=== PATIENT | male | born 1975 | race Caucasian/White ===

== ENCOUNTER 2017-09-24 00:12 | Emergency (ER) | payer SELFPAY ==
--- NOTE | 2017-09-24 00:43 | ER ---
Nurse's Notes [facility] Name: Geovani Hawkins Age: 41 yrs Sex: Male : 1975 Arrival Date: 09/24/2017 Time: 00:15 Bed 14 Private MD: Diagnosis: Pain in right shoulder;Other dislocation of right shoulder joint Presentation: 09/24 00:31 Presenting complaint: Patient states: pt states approx 4 hours ago he was trying to get bb up and put weight on his right arm and his right shoulder popped out then back in now has swelling and pain to right shoulder. Transition of care: patient was not received from another setting of care. Onset of symptoms was September 24, 2017. Care prior to arrival: None. 00:31 Method Of Arrival: Ambulatory bb 00: Acuity: CHRISTIAN 4 bb Historical: - Allergies: 00:33 Morphine; bb 00:33 Imitrex; bb - Home Meds: 00:33 gabapentin oral oral [Active]; bb - PMHx: 00:33 cluster headaches; epilepsy; bb - PSHx: 00:33 oral surgery; bb - Immunization history:: Adult Immunizations up to date, Flu vaccine is not up to date. - Social history:: Smoking status: Patient uses tobacco products, smokes one-half pack cigarettes per day, Patient/guardian denies using alcohol, street drugs. - Family history:: not pertinent. Screenin:35 Abuse screen: Denies threats or abuse. Denies injuries from another. Nutritional aa1 screening: No deficits noted. Tuberculosis screening: No symptoms or risk factors identified. Fall Risk None identified. Assessment: 00:35 General: Appears in no apparent distress. comfortable, Behavior is calm, cooperative, aa1 appropriate for age. Pain: Complains of pain in posterior aspect of right shoulder and anterior aspect of right shoulder. Neuro: Level of Consciousness is awake, alert, obeys commands, Oriented to person, place, time, situation. Respiratory: Airway is patent Respiratory effort is even, unlabored, Respiratory pattern is regular, symmetrical. GI: No signs and/or symptoms were reported involving the gastrointestinal system. : No signs and/or symptoms were reported regarding the genitourinary system. EENT: No signs and/or symptoms were reported regarding the EENT system. Derm: Skin is intact, is healthy with good turgor, Skin is pink, warm \T\ dry. Musculoskeletal: Circulation, motion, and sensation intact. Capillary refill < 3 seconds, Range of motion: limited in right shoulder. 00:52 Reassessment: Patient appears in no apparent distress at this time. Patient is alert, aa1 oriented x 3, equal unlabored respirations, skin warm/dry/pink. Discussed d/c \T\ f/u instructions with pt \T\ spouse; denies questions or concerns. Vital Signs: 00:33 BP 128 / 81; Pulse 80; Resp 18 S; Temp 98.2(O); Pulse Ox 99% on R/A; Weight 63.5 kg bb (R); Height 6 ft. 1 in. (185.42 cm) (R); Pain 8/10; 00:33 Body Mass Index 18.47 (63.50 kg, 185.42 cm) bb ED Course: 00:15 Patient arrived in ED. am2 00:25 Art Cornejo MD is Attending Physician. bernie 00:32 Triage completed. bb 00:33 Arm band placed on Patient placed in an exam room, on a stretcher, on pulse oximetry. bb Family accompanied patient. 00:35 Patient has correct armband on for positive identification. Bed in low position. Call aa1 light in reach. Pulse ox on. NIBP on. 00:39 Mega Hensley MD is Referral Physician. [facility] 00:43 Chelsea Joel, RN is Primary Nurse. aa1 00:43 X-ray completed. Portable x-ray completed in exam room. Patient tolerated procedure kw well. 00:52 No provider procedures requiring assistance completed. Patient did not have IV access aa1 during this emergency room visit. Sling applied to right arm. Administered Medications: 00:51 Drug: Motrin 600 mg Route: PO; aa1 00:52 Follow up: Response: Medication administered at discharge. aa1 Outcome: 00:42 Discharge ordered by . bernie 00:52 Discharged to home ambulatory, with significant other. aa1 00:52 Condition: good 00:52 Discharge instructions given to patient, significant other, Instructed on discharge instructions, follow up and referral plans. medication usage, Demonstrated understanding of instructions, follow-up care, medications, Prescriptions given X 1. 00:53 Patient left the ED. aa1 Signatures: Chelsea Joel RN RN aa1 Art Cornejo MD MD cha Ballard, Brenda, ALANNA RN Wendy Delvalle Amanda am2
--- NOTE | 2017-09-24 00:43 | EDPHYS ---
Physician Documentation [facility] Name: Geovani Hawkins Age: 41 yrs Sex: Male : 1975 Arrival Date: 09/24/2017 Time: 00:15 Bed 14 Private MD: ED Physician Art Cornejo HPI: 09/24 00:36 This 41 yrs old Male presents to ER via Ambulatory with complaints of bernie Shoulder Pain. 00:36 The patient or guardian complains of decreased range of motion, pain. right shoulder. bernie Context: The problem [place] park. Onset: The symptoms/episode began/occurred just prior to arrival. Modifying factors: the symptoms are alleviated by nothing. The symptoms are aggravated by movement. Associated signs and symptoms: The patient has no apparent associated signs or symptoms. Severity of symptoms: At their worst the symptoms were mild, moderate, in the emergency department the symptoms have improved, mildly. Treatment prior to arrival includes: no previous treatment. The patient has not experienced similar symptoms in the past. Historical: - Allergies: 00:33 Morphine; bb 00:33 Imitrex; bb - Home Meds: 00:33 gabapentin oral oral [Active]; bb - PMHx: 00:33 cluster headaches; epilepsy; bb - PSHx: 00:33 oral surgery; bb - Immunization history:: Adult Immunizations up to date, Flu vaccine is not up to date. - Social history:: Smoking status: Patient uses tobacco products, smokes one-half pack cigarettes per day, Patient/guardian denies using alcohol, street drugs. - Family history:: not pertinent. ROS: 00:36 Constitutional: Negative for fever, chills, and weight loss, Eyes: Negative for injury, bernie pain, redness, and discharge, ENT: Negative for injury, pain, and discharge, Neck: Negative for injury, pain, and swelling, Cardiovascular: Negative for chest pain, palpitations, and edema, Respiratory: Negative for shortness of breath, cough, wheezing, and pleuritic chest pain, Abdomen/GI: Negative for abdominal pain, nausea, vomiting, diarrhea, and constipation, Back: Negative for injury and pain, : Negative for injury, bleeding, discharge, and swelling, Skin: Negative for injury, rash, and discoloration, Neuro: Negative for headache, weakness, numbness, tingling, and seizure, Psych: Negative for depression, anxiety, suicide ideation, homicidal ideation, and hallucinations, Allergy/Immunology: Negative for hives, rash, and allergies, Endocrine: Negative for neck swelling, polydipsia, polyuria, polyphagia, and marked weight changes, Hematologic/Lymphatic: Negative for swollen nodes, abnormal bleeding, and unusual bruising. 00:36 MS/extremity: Positive for injury or acute deformity, decreased range of motion, of the anterior aspect of right shoulder and posterior aspect of right shoulder. Exam: 00:36 Constitutional: This is a well developed, well nourished patient who is awake, alert, bernie and in no acute distress. Head/Face: Normocephalic, atraumatic. Eyes: Pupils equal round and reactive to light, extra-ocular motions intact. Lids and lashes normal. Conjunctiva and sclera are non-icteric and not injected. Cornea within normal limits. Periorbital areas with no swelling, redness, or edema. ENT: Nares patent. No nasal discharge, no septal abnormalities noted. Tympanic membranes are normal and external auditory canals are clear. Oropharynx with no redness, swelling, or masses, exudates, or evidence of obstruction, uvula midline. Mucous membranes moist. Neck: Trachea midline, no thyromegaly or masses palpated, and no cervical lymphadenopathy. Supple, full range of motion without nuchal rigidity, or vertebral point tenderness. No Meningismus. Chest/axilla: Normal chest wall appearance and motion. Nontender with no deformity. No lesions are appreciated. Cardiovascular: Regular rate and rhythm with a normal S1 and S2. No gallops, murmurs, or rubs. Normal PMI, no JVD. No pulse deficits. Respiratory: Lungs have equal breath sounds bilaterally, clear to auscultation and percussion. No rales, rhonchi or wheezes noted. No increased work of breathing, no retractions or nasal flaring. Abdomen/GI: Soft, non-tender, with normal bowel sounds. No distension or tympany. No guarding or rebound. No evidence of tenderness throughout. Back: No spinal tenderness. No costovertebral tenderness. Full range of motion. Male : Normal genitalia with no discharge or lesions. Skin: Warm, dry with normal turgor. Normal color with no rashes, no lesions, and no evidence of cellulitis. Neuro: Awake and alert, GCS 15, oriented to person, place, time, and situation. Cranial nerves II-XII grossly intact. Motor strength 5/5 in all extremities. Sensory grossly intact. Cerebellar exam normal. Normal gait. Psych: Awake, alert, with orientation to person, place and time. Behavior, mood, and affect are within normal limits. 00:36 Musculoskeletal/extremity: Extremities: grossly normal except: noted in the anterior aspect of right shoulder and posterior aspect of right shoulder: decreased ROM, pain. Vital Signs: 00:33 BP 128 / 81; Pulse 80; Resp 18 S; Temp 98.2(O); Pulse Ox 99% on R/A; Weight 63.5 kg bb (R); Height 6 ft. 1 in. (185.42 cm) (R); Pain 8/10; 00:33 Body Mass Index 18.47 (63.50 kg, 185.42 cm) bb MDM: 00:25 Patient medically screened. [facility] 09/24 00:33 Order name: Shoulder Right (2 View) XRAY rg2 09/24 00:36 Order name: Sling; Complete Time: 00:52 [facility] 09/24 00:36 Order name: Ice pack; Complete Time: 00:51 [facility] Administered Medications: 00:51 Drug: Motrin 600 mg Route: PO; aa1 00:52 Follow up: Response: Medication administered at discharge. aa1 Disposition: 09/24/17 00:42 Discharged to Home. Impression: Pain in right shoulder, Other dislocation of right shoulder joint. - Condition is Stable. - Discharge Instructions: Shoulder Dislocation, Musculoskeletal Pain, Shoulder Pain, Shoulder Dislocation, [id number]. - Prescriptions for Ibuprofen 600 mg Oral Tablet - take 1 tablet by ORAL route every 8 hours As needed take with food; 21 tablet. - Medication Reconciliation Form, Thank You Letter, Antibiotic Education, Prescription Opioid Use form. - Follow up: Mega Hensley MD; When: 2 - 3 days; Reason: Recheck today's complaints, Continuance of care, Re-evaluation by your physician. - Problem is new. - Symptoms have improved. Signatures: Dispatcher [employer] EDChelsea Woodruff RN RN aa1 Art Cornejo MD MD cha Ballard, Brenda, RN RN bb
[2017-09-24 00:57] VITALS: BP 128/81; TEMP 98.2; O2SAT 99
[2017-09-24] MEDS ORDERED: IBUPROFEN 400 MG TAB ONE (01:06)
[2017-09-24] MEDS ORDERED: IBUPROFEN 200 MG TAB PO ONE (01:06)
--- NOTE | 2017-09-24 08:57 | RAD REPORT ---
EXAM DESCRIPTION: RAD - Shoulder Right 2 View - 09/24/2017 12:46 am CLINICAL HISTORY: Shoulder pain and swelling. COMPARISON: None. FINDINGS: No acute fracture or dislocation is currently seen. Prominent olecranon spur is identified .
== END 2017-09-24 00:53 | disposition home or self-care (01) ==
LOC: ER 00:12
DX: F17.210 Nicotine dependence, cigarettes, uncomplicated; Y92.830 Public park as the place of occurrence of the external cause; G40.909 Epilepsy, unspecified, not intractable, without status epilepticus; Y99.8 Other external cause status; Y93.89 Activity, other specified; X58.XXXA Exposure to other specified factors, initial encounter; Z88.6 Allergy status to analgesic agent; S43.004A Unspecified dislocation of right shoulder joint, initial encounter
CPT/HCPCS: 99284

== ENCOUNTER 2019-02-06 21:04 | Emergency (ER) | payer SELFPAY ==
[2019-02-06 21:46] LABS: Absolute Lymphocytes (CBC) 2.3 K/uL (0.7-4.9); Hematocrit 37.7 % (39.6-49.0); Lymphocytes % 27.6 % (15.3-44.8); MPV 8.1 fL (7.6-11.3); RBC Red Blood Cell Count 4.13 M/uL (4.33-5.43)
[2019-02-06 22:00] LABS: BUN Blood Urea Nitrogen 15 mg/dL (7-18); Bicarbonate 29 mmol/L (21-32); Glucose Level 95 mg/dL (74-106); Potassium 3.7 mmol/L (3.5-5.1); Sodium Level 142 mmol/L (136-145)
[2019-02-06] MEDS ORDERED: NA CHLORIDE 0.9% 250 ML ONE (22:51)
[2019-02-06] MEDS ORDERED: CEFTRIAXONE 1000 MG/VIAL ONE (22:51)
[2019-02-06] MEDS ORDERED: CLINDAMYCIN 600MG/D5W 600 MG/50 ML BAG IV ONE (23:09)
--- NOTE | 2019-02-06 23:23 | ER ---
Nurse's Notes [facility] Name: Geovani Hawkins Age: 43 yrs Sex: Male : 1975 Arrival Date: 02/06/2019 Time: 21:06 Bed 27 Private MD: Diagnosis: Cellulitis of left lower limb Presentation: 02/06 21:22 Presenting complaint: Patient states: "3 weeks ago I tripped and my ankle went side ca1 ways. It hurt a little bit but was not swollen. 4-5 days ago, my left ankle started to swell and it hurts when I walk on it". Transition of care: patient was not received from another setting of care. Onset of symptoms was February 06, 2019. Risk Assessment: Do you want to hurt yourself or someone else? Patient reports no desire to harm self or others. Initial Sepsis Screen: Does the patient meet any 2 criteria? No. Patient's initial sepsis screen is negative. Does the patient have a suspected source of infection? No. Patient's initial sepsis screen is negative. Care prior to arrival: None. 21:22 Method Of Arrival: Wheelchair ca1 21:22 Acuity: CHRISTIAN 3 ca1 Historical: - Allergies: 21:27 Imitrex; ca1 21:27 Morphine; ca1 - Home Meds: 21:27 gabapentin Oral [Active]; Suboxone sublingual sublingual [Active]; Maxalt oral oral ca1 [Active]; - PMHx: 21:27 cluster headaches; epilepsy; ca1 - PSHx: 21:27 oral surgery; L thigh surgery; ca1 - Immunization history:: Adult Immunizations up to date. - Social history:: Smoking status: Patient uses tobacco products, smokes one-half pack cigarettes per day. - Ebola Screening: : Patient negative for fever greater than or equal to 101.5 degrees Fahrenheit, and additional compatible Ebola Virus Disease symptoms Patient denies exposure to infectious person Patient denies travel to an Ebola-affected area in the 21 days before illness onset No symptoms or risks identified at this time. Screenin:29 Abuse screen: Denies threats or abuse. Denies injuries from another. Nutritional ca1 screening: No deficits noted. Tuberculosis screening: No symptoms or risk factors identified. Fall Risk None identified. Assessment: 21:29 General: Appears in no apparent distress. comfortable, Behavior is calm, cooperative, ca1 appropriate for age. Pain: Complains of pain in left foot and left leg Pain currently is 5 out of 10 on a pain scale. at worst was 7 out of 10 on a pain scale. Quality of pain is described as pressure, Pain began 2-3 days ago. Aggravated by weight bearing. Neuro: Level of Consciousness is awake, alert, obeys commands, Oriented to person, place, time, situation. Cardiovascular: Heart tones S1 S2 present Capillary refill < 3 seconds Patient's skin is warm and dry. Pulses are all present. Respiratory: Airway is patent Respiratory effort is even, unlabored, Respiratory pattern is regular, symmetrical, Breath sounds are clear bilaterally. GI: Abdomen is flat, non-distended, Bowel sounds present X 4 quads. Abd is soft and non tender X 4 quads. : No deficits noted. No signs and/or symptoms were reported regarding the genitourinary system. EENT: No deficits noted. No signs and/or symptoms were reported regarding the EENT system. Derm: Skin is intact, is healthy with good turgor, Skin is pink, warm \\T\\ dry. Musculoskeletal: Circulation, motion, and sensation intact. Capillary refill < 3 seconds, Range of motion: intact in all extremities, Swelling present in left foot, lateral aspect of left calf, left lateral ankle, lateral aspect of left foot, left calf, left Achilles, left heel, medial aspect of left calf, left medial ankle, medial aspect of left foot, left mcallister, anterior aspect of left ankle and dorsum of left foot. Vital Signs: 21:27 BP 116 / 85; Pulse 116; Resp 18 S; Temp 98; Pulse Ox 99% on R/A; Weight 65.77 kg (R); ca1 Height 6 ft. 1 in. (185.42 cm); Pain 7/10; 23:47 BP 115 / 80; Pulse 96; Resp 16; Temp 98; Pulse Ox 99% ; rv 21:27 Body Mass Index 19.13 (65.77 kg, 185.42 cm) ca1 ED Course: 21:06 Patient arrived in ED. es 21:08 Andrey Hurt PA is PHCP. jr8 21:08 Art Cornejo MD is Attending Physician. jr8 21:22 Mar Metz RN is Primary Nurse. ca1 21:24 Triage completed. ca1 21:27 Arm band placed on. ca1 21:29 Patient has correct armband on for positive identification. Bed in low position. Call ca1 light in reach. Side rails up X 1. Pulse ox on. NIBP on. Warm blanket given. Ice pack to injury. 21:31 Inserted saline lock: 20 gauge in right antecubital area, using aseptic technique. ca1 Blood collected. 21:57 XRAY Ankle LEFT 3 view In Process Unspecified. EDMS 22:34 Ultrasound completed. Patient tolerated well. sg3 22:35 US Extremity Venous Unilateral Ltd In Process Unspecified. EDMS 23:46 No provider procedures requiring assistance completed. IV discontinued, intact, rv bleeding controlled, No redness/swelling at site. Pressure dressing applied. Administered Medications: 22:57 Drug: Rocephin 2 grams Route: IV; Rate: calculated rate; Site: right antecubital; rv 23:22 Follow up: IV Status: Completed infusion rv 23:22 Drug: Clindamycin 600 mg Route: IVPB; Infused Over: 30 mins; Site: right antecubital; rv 23:46 Follow up: IV Status: Completed infusion rv Outcome: 23:22 Discharge ordered by MD. wynne 23:47 Discharged to home ambulatory. rv 23:47 Condition: good 23:47 Discharge instructions given to patient, Instructed on discharge instructions, follow up and referral plans. medication usage, Demonstrated understanding of instructions, follow-up care, medications, Prescriptions given X 2. 23:47 Patient left the ED. rv Signatures: Dispatcher [employer] EDDuyen Gonzalez Josh, PA PA jrMarine Rawls sg3 Rao Isaac, RN RN rv Mar Metz RN RN ca1
--- NOTE | 2019-02-06 23:24 | EDPHYS ---
Physician Documentation [facility] Name: Geovani Hawkins Age: 43 yrs Sex: Male : 1975 Arrival Date: 02/06/2019 Time: 21:06 Bed 27 Private MD: ED Physician Art Cornejo HPI: 02/06 22:10 This 43 yrs old Male presents to ER via Wheelchair with complaints of Ankle jr8 Injury. 22:10 The patient presents with pain, swelling, tenderness. The complaints affect the left jr8 ankle. Onset: The symptoms/episode began/occurred acutely, 3 day(s) ago. Associated signs and symptoms: The patient has no apparent associated signs or symptoms. Modifying factors: The symptoms are alleviated by nothing, the symptoms are aggravated by weight bearing, movement. Severity of symptoms: At their worst the symptoms were moderate, in the emergency department the symptoms are unchanged. The patient has not experienced similar symptoms in the past. The patient has not recently seen a physician. Patient stated that he rolled his ankle about 3 weeks ago. Had been fine and recovered well from incident. 3 days ago same ankle started to swell and become painful. Denies re injury . Historical: - Allergies: 21:27 Imitrex; ca1 21:27 Morphine; ca1 - Home Meds: 21:27 gabapentin Oral [Active]; Suboxone sublingual sublingual [Active]; Maxalt oral oral ca1 [Active]; - PMHx: 21:27 cluster headaches; epilepsy; ca1 - PSHx: 21:27 oral surgery; L thigh surgery; ca1 - Immunization history:: Adult Immunizations up to date. - Social history:: Smoking status: Patient uses tobacco products, smokes one-half pack cigarettes per day. - Ebola Screening: : Patient negative for fever greater than or equal to 101.5 degrees Fahrenheit, and additional compatible Ebola Virus Disease symptoms Patient denies exposure to infectious person Patient denies travel to an Ebola-affected area in the 21 days before illness onset No symptoms or risks identified at this time. ROS: 22:10 Eyes: Negative for injury, pain, redness, and discharge, ENT: Negative for injury, jr8 pain, and discharge, Neck: Negative for injury, pain, and swelling, Cardiovascular: Negative for chest pain, palpitations, and edema, Respiratory: Negative for shortness of breath, cough, wheezing, and pleuritic chest pain, Abdomen/GI: Negative for abdominal pain, nausea, vomiting, diarrhea, and constipation, Back: Negative for injury and pain, Skin: Negative for injury, rash, and discoloration, Neuro: Negative for headache, weakness, numbness, tingling, and seizure. 22:10 MS/extremity: Positive for erythema, pain, swelling, tenderness, warmth, of the left ankle and disal leg. Exam: 22:39 Eyes: Pupils equal round and reactive to light, extra-ocular motions intact. Lids and jr8 lashes normal. Conjunctiva and sclera are non-icteric and not injected. Cornea within normal limits. Periorbital areas with no swelling, redness, or edema. ENT: Nares patent. No nasal discharge, no septal abnormalities noted. Tympanic membranes are normal and external auditory canals are clear. Oropharynx with no redness, swelling, or masses, exudates, or evidence of obstruction, uvula midline. Mucous membranes moist. Neck: Trachea midline, no thyromegaly or masses palpated, and no cervical lymphadenopathy. Supple, full range of motion without nuchal rigidity, or vertebral point tenderness. No Meningismus. Cardiovascular: Regular rate and rhythm with a normal S1 and S2. No gallops, murmurs, or rubs. Normal PMI, no JVD. No pulse deficits. Respiratory: Lungs have equal breath sounds bilaterally, clear to auscultation and percussion. No rales, rhonchi or wheezes noted. No increased work of breathing, no retractions or nasal flaring. Abdomen/GI: Soft, non-tender, with normal bowel sounds. No distension or tympany. No guarding or rebound. No evidence of tenderness throughout. Back: No spinal tenderness. No costovertebral tenderness. Full range of motion. MS/ Extremity: Pulses equal, no cyanosis. Neurovascular intact. Full, normal range of motion. Neuro: Awake and alert, GCS 15, oriented to person, place, time, and situation. Cranial nerves II-XII grossly intact. Motor strength 5/5 in all extremities. Sensory grossly intact. Cerebellar exam normal. Normal gait. 22:39 Skin: swollen erythematic left ankle, foot, and distal leg noted. Mild pain to touch. No streaking noted . Vital Signs: 21:27 BP 116 / 85; Pulse 116; Resp 18 S; Temp 98; Pulse Ox 99% on R/A; Weight 65.77 kg (R); ca1 Height 6 ft. 1 in. (185.42 cm); Pain 7/10; 23:47 BP 115 / 80; Pulse 96; Resp 16; Temp 98; Pulse Ox 99% ; rv 21:27 Body Mass Index 19.13 (65.77 kg, 185.42 cm) ca1 MDM: 21:08 Patient medically screened. [facility] 22:39 Data reviewed: vital signs, nurses notes, lab test result(s), radiologic studies, plain jr films, ultrasound. Data interpreted: Pulse oximetry: on room air is 99 %. Interpretation: normal. Counseling: I had a detailed discussion with the patient and/or guardian regarding: the historical points, exam findings, and any diagnostic results supporting the discharge/admit diagnosis, lab results, radiology results, the need for outpatient follow up, a family practitioner, to return to the emergency department if symptoms worsen or persist or if there are any questions or concerns that arise at home. ED course: Patient non toxic. No signs of sepsis at this point. Will give IV antibiotics here and trial him on oral antibiotics. Explicit instructions given to patient to come back if swelling, erythema, pain, or temperature were to ensue or worsen. Patient understood and will immediately come back . 02/06 21:22 Order name: CBC with Diff; Complete Time: 21:51 [facility] 02/06 21:22 Order name: Basic Metabolic Panel; Complete Time: 22:01 [facility] 02/06 21:22 Order name: XRAY Ankle LEFT 3 view [facility] 02/06 21:22 Order name: US Extremity Venous Unilateral Ltd [facility] 02/06 21:22 Order name: IV; Complete Time: 21:32 [facility] Administered Medications: 22:57 Drug: Rocephin 2 grams Route: IV; Rate: calculated rate; Site: right antecubital; rv 23:22 Follow up: IV Status: Completed infusion rv 23:22 Drug: Clindamycin 600 mg Route: IVPB; Infused Over: 30 mins; Site: right antecubital; rv 23:46 Follow up: IV Status: Completed infusion rv Disposition: 02/07 09:26 Co-signature as Attending Physician, Art Cornejo MD I agree with the assessment and bernie plan of care. Disposition: 02/06/19 23:22 Discharged to Home. Impression: Cellulitis of left lower limb. - Condition is Stable. - Discharge Instructions: Cellulitis, Adult. - Prescriptions for Keflex 500 mg Oral Capsule - take 1 capsule by ORAL route every 6 hours for 10 days; 40 capsule. Bactrim DS 800- 160 mg Oral Tablet - take 1 tablet by ORAL route every 12 hours for 10 days; 20 tablet. - Medication Reconciliation Form, Thank You Letter, Antibiotic Education, Prescription Opioid Use form. - Follow up: Private Physician; When: 2 - 3 days; Reason: Recheck today's complaints, Continuance of care, Re-evaluation by your physician. - Problem is new. - Symptoms have improved. Signatures: Dispatcher [employer] EDMS Art Cornejo MD MD cha Roszak, Josh, PA PA jr8 Rao Isaac, RN RN rv Mar Metz RN RN ca1 Corrections: (The following items were deleted from the chart) 02/06 23:47 23:22 02/06/2019 23:22 Discharged to Home. Impression: Cellulitis of left lower limb. rv Condition is Stable. Forms are Medication Reconciliation Form, Thank You Letter, Antibiotic Education, Prescription Opioid Use. Follow up: Private Physician; When: 2 - 3 days; Reason: Recheck today's complaints, Continuance of care, Re-evaluation by your physician. Problem is new. Symptoms have improved. jr8
[2019-02-06 23:55] VITALS: TEMP 98; O2SAT 99
[2019-02-06 23:57] VITALS: BP 115/80
--- NOTE | 2019-02-07 08:17 | RAD REPORT ---
EXAM DESCRIPTION: RAD - Ankle Left 3 View - 02/06/2019 9:57 pm CLINICAL HISTORY: Left ankle pain, twisting injury 3 weeks earlier, persistent pain and swelling COMPARISON: None. FINDINGS: No fracture, dislocation or periosteal reaction. No joint effusion seen. No joint space na rrowing. Significant soft tissue edema surrounds the ankle joint. IMPRESSION: Significant soft tissue swelling without fracture or other bone acute process.
--- NOTE | 2019-02-07 10:06 | RAD REPORT ---
EXAM DESCRIPTION: US - Extremity Venous Uni Ltd - 02/06/2019 10:35 pm CLINICAL HISTORY: Left leg pain and swelling COMPARISON: None. TECHNIQUE: Real-time sonographic evaluation of the left lower extremity deep venous system was perfo rmed. FINDINGS: Normal compressibility, flow augmentation, phasic flow and spontaneous flow are identified in the left lower extremity common femoral, superficial femoral, popliteal and posterior tibial vein s. No intraluminal filling defects seen. IMPRESSION: No DVT in the left lower extremity.
== END 2019-02-06 23:47 | disposition home or self-care (01) ==
LOC: ER 21:04
DX: L03.116 Cellulitis of left lower limb (principal); F17.210 Nicotine dependence, cigarettes, uncomplicated; Z88.5 Allergy status to narcotic agent; Z88.8 Allergy status to other drugs, medicaments and biological substances
CPT/HCPCS: 36415; 80048; 85025; 93971; 96365; 96367; 99284

== ENCOUNTER 2019-07-05 08:36 | Emergency (ER) | payer SELFPAY ==
--- NOTE | 2019-07-05 09:36 | ER ---
Nurse's Notes [facility] Name: Geovani Hawkins Age: 43 yrs Sex: Male : 1975 Arrival Date: 07/05/2019 Time: 08:38 Bed 17 Private MD: Diagnosis: Influenza due to identified novel influenza A virus Presentation: 07/05 08:50 Presenting complaint: Patient states: Fever, sore throat, nausea and generally not ss feeling well x 1.5 days. Tylenol last taken 6 hours ago. Transition of care: patient was not received from another setting of care. Onset of symptoms was July 03, 2019. Risk Assessment: Do you want to hurt yourself or someone else? Patient reports no desire to harm self or others. Initial Sepsis Screen: Does the patient meet any 2 criteria? HR > 90 bpm. No. Patient's initial sepsis screen is negative. Does the patient have a suspected source of infection? No. Patient's initial sepsis screen is negative. Care prior to arrival: None. 08:50 Method Of Arrival: Ambulatory ss 08:50 Acuity: CHRISTIAN 4 ss Historical: - Allergies: 08:59 Imitrex; ss 08:59 Morphine; ss - PMHx: 08:59 cluster headaches; epilepsy; ss - PSHx: 08:59 oral surgery; L thigh surgery; ss - Immunization history:: Adult Immunizations up to date. - Social history:: Smoking status: Patient uses tobacco products, smokes one-half pack cigarettes per day. - Ebola Screening: : Patient denies exposure to infectious person Patient denies travel to an Ebola-affected area in the 21 days before illness onset. Screenin:00 Abuse screen: Denies threats or abuse. Denies injuries from another. Nutritional ss screening: No deficits noted. Tuberculosis screening: Never had TB. Fall Risk None identified. Assessment: 09:00 General: Appears in no apparent distress. comfortable, Behavior is calm, cooperative, ss Reports chills for 1-2 days, fever for 1-2 days, feeling ill for 1-2 days, fatigue for 1-2 days. Pain: Denies pain. Neuro: Level of Consciousness is awake, alert, obeys commands, Oriented to person, place, time, situation, Speech is normal. Cardiovascular: Capillary refill < 3 seconds is brisk in bilateral. Respiratory: Airway is patent Respiratory effort is even, Respiratory pattern is regular, symmetrical. GI: Reports nausea, Patient currently denies diarrhea, vomiting. : No signs and/or symptoms were reported regarding the genitourinary system. EENT: Nares are clear Oral mucosa is moist. Derm: Skin is intact, is healthy with good turgor, Skin is dry, Skin is pink, warm \T\ dry. normal. Musculoskeletal: Circulation, motion, and sensation intact. Range of motion: intact in all extremities, Swelling absent. Vital Signs: 08:59 BP 140 / 90; Pulse 110; Resp 16; Temp 98.7(O); Pulse Ox 98% on R/A; Weight 65.77 kg; ss Height 6 ft. 1 in. (185.42 cm); Pain 0/10; 08:59 Body Mass Index 19.13 (65.77 kg, 185.42 cm) ED Course: 08:38 Patient arrived in ED. as 08:49 Andrey Hurt PA is PHCP. jr8 08:49 Art Cornejo MD is Attending Physician. jr8 08:57 Concepción Olea, ALANNA is Primary Nurse. 08:58 Triage completed. ss 08:59 Arm band placed on right wrist. 09:00 Patient has correct armband on for positive identification. Bed in low position. Pulse ss ox on. NIBP on. 09:04 Flu and/or RSV swab sent to lab. Strep swab sent to lab. jb1 09:04 Strep Sent. jb1 09:04 Influenza Screen (a \T\ B) Sent. jb1 10:00 No provider procedures requiring assistance completed. Patient did not have IV access ss during this emergency room visit. Administered Medications: 10:00 Drug: Tamiflu 75 mg Route: PO; 10:00 Follow up: Response: Medication administered at discharge. Outcome: 09:36 Discharge ordered by . jr8 10:00 Discharged to home ambulatory, with family. 10:00 Condition: good 10:00 Discharge instructions given to patient, Instructed on discharge instructions, follow up and referral plans. medication usage, Demonstrated understanding of instructions, follow-up care, medications, Prescriptions given X 1. 10:01 Patient left the ED. Signatures: Harsha Garcia jb1 Manjula Armijo Shelby, ALANNA RN Andrey Hrut PA PA jr8 Corrections: (The following items were deleted from the chart) 09:03 08:50 Initial Sepsis Screen: Does the patient meet any 2 criteria? No. Patient's ss initial sepsis screen is negative. Does the patient have a suspected source of infection? No. Patient's initial sepsis screen is negative. ss
--- NOTE | 2019-07-05 09:37 | EDPHYS ---
Physician Documentation [facility] Name: Geovani Hawkins Age: 43 yrs Sex: Male : 1975 Arrival Date: 07/05/2019 Time: 08:38 Bed 17 Private MD: ED Physician Art Cornejo HPI: 07/05 08:57 This 43 yrs old Male presents to ER via Unassigned with complaints of Flu jr8 Symptoms. 08:57 The patient reports fever, not measured (subjective). Onset: The symptoms/episode jr8 began/occurred acutely, yesterday. Modifying factors: there are no obvious modifying factors. Associated signs and symptoms: Pertinent positives: cough, headache, nausea, runny nose, sore throat. Severity of symptoms: At their worst the symptoms were mild in the emergency department the symptoms are unchanged. The patient has not experienced similar symptoms in the past. The patient has not recently seen a physician. Historical: - Allergies: 08:59 Imitrex; ss 08:59 Morphine; ss - PMHx: 08:59 cluster headaches; epilepsy; ss - PSHx: 08:59 oral surgery; L thigh surgery; ss - Immunization history:: Adult Immunizations up to date. - Social history:: Smoking status: Patient uses tobacco products, smokes one-half pack cigarettes per day. - Ebola Screening: : Patient denies exposure to infectious person Patient denies travel to an Ebola-affected area in the 21 days before illness onset. ROS: 08:57 Constitutional: Positive for body aches, fatigue, fever, malaise. jr8 08:57 ENT: Positive for rhinorrhea, sinus congestion, sore throat. 08:57 Abdomen/GI: Positive for nausea, Negative for abdominal pain, vomiting, diarrhea, abdominal cramps, abdominal distension. 08:57 Neuro: Positive for headache. 08:57 All other systems are negative. Exam: 08:57 Eyes: Pupils equal round and reactive to light, extra-ocular motions intact. Lids and jr8 lashes normal. Conjunctiva and sclera are non-icteric and not injected. Cornea within normal limits. Periorbital areas with no swelling, redness, or edema. ENT: Nares patent. No nasal discharge, no septal abnormalities noted. Tympanic membranes are normal and external auditory canals are clear. Oropharynx with mild redness to the tonsillar and posterior pharyngeal regions without swelling, or masses, exudates, or evidence of obstruction, uvula midline. Mucous membranes moist. Neck: Trachea midline, no thyromegaly or masses palpated, and no cervical lymphadenopathy. Supple, full range of motion without nuchal rigidity, or vertebral point tenderness. No Meningismus. Cardiovascular: Regular rate and rhythm with a normal S1 and S2. No gallops, murmurs, or rubs. Normal PMI, no JVD. No pulse deficits. Respiratory: Lungs have equal breath sounds bilaterally, clear to auscultation and percussion. No rales, rhonchi or wheezes noted. No increased work of breathing, no retractions or nasal flaring. Abdomen/GI: Soft, non-tender, with normal bowel sounds. No distension or tympany. No guarding or rebound. No evidence of tenderness throughout. Back: No spinal tenderness. No costovertebral tenderness. Full range of motion. Skin: Warm, dry with normal turgor. Normal color with no rashes, no lesions, and no evidence of cellulitis. MS/ Extremity: Pulses equal, no cyanosis. Neurovascular intact. Full, normal range of motion. Neuro: Awake and alert, GCS 15, oriented to person, place, time, and situation. Cranial nerves II-XII grossly intact. Motor strength 5/5 in all extremities. Sensory grossly intact. Cerebellar exam normal. Normal gait. Vital Signs: 08:59 BP 140 / 90; Pulse 110; Resp 16; Temp 98.7(O); Pulse Ox 98% on R/A; Weight 65.77 kg; ss Height 6 ft. 1 in. (185.42 cm); Pain 0/10; 08:59 Body Mass Index 19.13 (65.77 kg, 185.42 cm) ss MDM: 08:49 Patient medically screened. jr8 09:35 Data reviewed: vital signs, nurses notes, lab test result(s), Flu: positive and as a jr8 result, I will discharge patient. Data interpreted: Pulse oximetry: on room air is 98 %. Interpretation: normal. Counseling: I had a detailed discussion with the patient and/or guardian regarding: the historical points, exam findings, and any diagnostic results supporting the discharge/admit diagnosis, lab results, the need for outpatient follow up, a family practitioner, to return to the emergency department if symptoms worsen or persist or if there are any questions or concerns that arise at home. 07/05 08:57 Order name: Influenza Screen (a \T\ B); Complete Time: jr8 07/05 08:57 Order name: Strep; Complete Time: :34 8 07/05 09:27 Order name: Throat Culture EDSC Administered Medications: 10:00 Drug: Tamiflu 75 mg Route: PO; ss 10:00 Follow up: Response: Medication administered at discharge. ss Disposition: 07/05/19 09:36 Discharged to Home. Impression: Influenza due to identified novel influenza A virus. - Condition is Stable. - Discharge Instructions: Influenza, Adult. - Prescriptions for Tamiflu 75 mg Oral Capsule - take 1 capsule by ORAL route every 12 hours for 5 days; 10 capsule. Tessalon Perles 100 mg Oral Capsule - take 1 capsule by ORAL route every 8 hours As needed; 15 capsule. - Medication Reconciliation Form, Thank You Letter, Antibiotic Education, Prescription Opioid Use form. - Follow up: Private Physician; When: 2 - 3 days; Reason: Recheck today's complaints, Continuance of care, Re-evaluation by your physician. - Problem is new. - Symptoms have improved. Addendum: 07/11/2019 11:08 Co-signature as Attending Physician, Art Cornejo MD I agree with the assessment and c sanderson plan of care. Signatures: Dispatcher [employer] [facility] Art Cornejo MD MD cha Smirch, Shelby, ALANNA RN Andrey Sheriff PA PA jr8 Corrections: (The following items were deleted from the chart) 07/05 10:01 09:36 07/05/2019 09:36 Discharged to Home. Impression: Influenza due to identified novel influenza A virus. Condition is Stable. Forms are Medication Reconciliation Form, Thank You Letter, Antibiotic Education, Prescription Opioid Use. Follow up: Private Physician; When: 2 - 3 days; Reason: Recheck today's complaints, Continuance of care, Re-evaluation by your physician. Problem is new. Symptoms have improved. jr8
[2019-07-05] MEDS ORDERED: OSELTAMIVIR 75 MG CAP ONE (09:58)
[2019-07-05 10:05] VITALS: BP 140/90; TEMP 98.7; O2SAT 98
== END 2019-07-05 10:01 | disposition home or self-care (01) ==
LOC: ER 08:36
DX: J10.1 Influenza due to other identified influenza virus with other respiratory manifestations (principal); F17.210 Nicotine dependence, cigarettes, uncomplicated; Z88.5 Allergy status to narcotic agent; Z88.8 Allergy status to other drugs, medicaments and biological substances
CPT/HCPCS: 87070; 87081; 87804; 99284

== ENCOUNTER 2020-02-20 16:00 | Emergency (ER) | payer SELFPAY ==
[2020-02-20 18:09] LABS: Absolute Lymphocytes (CBC) 2.3 K/uL (0.7-4.9); Hematocrit 38.9 % (39.6-49.0); Lymphocytes % 24.8 % (15.3-44.8); MPV 7.9 fL (7.6-11.3); RBC Red Blood Cell Count 4.26 M/uL (4.33-5.43)
[2020-02-20] MEDS ORDERED: ONDANSETRON 4 MG/2 ML VIAL ONE (18:25)
[2020-02-20 18:28] LABS: ALT/SGPT 33 U/L (12-78); AST/SGOT 18 U/L (15-37); Albumin 3.5 g/dL (3.4-5.0); Alkaline Phosphatase 89 U/L (45-117); BUN Blood Urea Nitrogen 10 mg/dL (7-18); Bicarbonate 29 mmol/L (21-32); Bilirubin Direct < 0.1 mg/dL (0-0.2); Bilirubin Total 0.4 mg/dL (0.2-1.0); Glucose Level 95 mg/dL (74-106); Lipase 51 U/L (73-393); Potassium 4.5 mmol/L (3.5-5.1); Protein, Total 7.7 g/dL (6.4-8.2); Sodium Level 141 mmol/L (136-145)
[2020-02-20] MEDS ORDERED: DICYCLOMINE HCL 10 MG CAP ONE (19:38)
--- NOTE | 2020-02-20 19:54 | EDPHYS ---
Physician Documentation [facility] Name: Geovani Hawkins Age: 44 yrs Sex: Male : 1975 Arrival Date: 02/20/2020 Time: 16:25 Bed 16 Private MD: ED Physician Paul Nevarez HPI: 02/19 19:21 This 44 yrs old Male presents to ER via Ambulatory with complaints of jr8 Abdominal Pain, Nausea. 19:21 The patient presents with abdominal pain in the periumbilical area. Onset: The jr8 symptoms/episode began/occurred acutely, 2 day(s) ago. The symptoms do not radiate. Associated signs and symptoms: Pertinent positives: nausea, vomiting, and diarrhea. The symptoms are described as crampy. Modifying factors: The symptoms are alleviated by nothing, the symptoms are aggravated by nothing. Severity of pain: At its worst the pain was mild in the emergency department the pain is unchanged. The patient has not experienced similar symptoms in the past. The patient has not recently seen a physician. Stated that for the past couple of days had had cramping and nausea with extreme fatigue. Now with diarrhea today. Worse today . Historical: - Allergies: 16:29 Imitrex; ca1 16:29 Morphine; ca1 - Home Meds: 19:12 gabapentin Oral [Active]; Suboxone sublingual [Active]; Maxalt Oral [Active]; tw2 - PMHx: 16:29 cluster headaches; epilepsy; ca1 - PSHx: 16:29 oral surgery; ca1 19:12 L thigh surgery; tw2 - Immunization history:: Adult Immunizations up to date. - Social history:: Smoking status: Patient reports the use of cigarette tobacco products, smokes one-half pack cigarettes per day. ROS: 19:21 Eyes: Negative for injury, pain, redness, and discharge, ENT: Negative for injury, jr8 pain, and discharge, Neck: Negative for injury, pain, and swelling, Cardiovascular: Negative for chest pain, palpitations, and edema, Respiratory: Negative for shortness of breath, cough, wheezing, and pleuritic chest pain, Back: Negative for injury and pain, MS/Extremity: Negative for injury and deformity, Skin: Negative for injury, rash, and discoloration, Neuro: Negative for headache, weakness, numbness, tingling, and seizure. 19:21 Constitutional: Positive for fatigue, malaise. 19:21 Abdomen/GI: Positive for abdominal pain, nausea, vomiting, and diarrhea, abdominal cramps. Exam: 19:21 Eyes: Pupils equal round and reactive to light, extra-ocular motions intact. Lids and jr8 lashes normal. Conjunctiva and sclera are non-icteric and not injected. Cornea within normal limits. Periorbital areas with no swelling, redness, or edema. ENT: Nares patent. No nasal discharge, no septal abnormalities noted. Tympanic membranes are normal and external auditory canals are clear. Oropharynx with no redness, swelling, or masses, exudates, or evidence of obstruction, uvula midline. Mucous membranes moist. Neck: Trachea midline, no thyromegaly or masses palpated, and no cervical lymphadenopathy. Supple, full range of motion without nuchal rigidity, or vertebral point tenderness. No Meningismus. Cardiovascular: Regular rate and rhythm with a normal S1 and S2. No gallops, murmurs, or rubs. Normal PMI, no JVD. No pulse deficits. Respiratory: Lungs have equal breath sounds bilaterally, clear to auscultation and percussion. No rales, rhonchi or wheezes noted. No increased work of breathing, no retractions or nasal flaring. Abdomen/GI: Soft, non-tender, with normal bowel sounds. No distension or tympany. No guarding or rebound. No evidence of tenderness throughout. Back: No spinal tenderness. No costovertebral tenderness. Full range of motion. Skin: Warm, dry with normal turgor. Normal color with no rashes, no lesions, and no evidence of cellulitis. MS/ Extremity: Pulses equal, no cyanosis. Neurovascular intact. Full, normal range of motion. Neuro: Awake and alert, GCS 15, oriented to person, place, time, and situation. Cranial nerves II-XII grossly intact. Motor strength 5/5 in all extremities. Sensory grossly intact. Cerebellar exam normal. Normal gait. Vital Signs: 16:27 BP 107 / 75; Pulse 83; Resp 15 S; Temp 98.7(O); Pulse Ox 100% on R/A; Weight 79.38 kg ca1 (R); Height 6 ft. 0 in. (182.88 cm) (R); Pain 6/10; 18:00 BP 101 / 70; Pulse 71; Resp 17; Pulse Ox 98% on R/A; tw2 18:30 BP 99 / 69; Pulse 84; Resp 17; Pulse Ox 97% on R/A; tw2 19:52 BP 112 / 75; Pulse 72; Resp 18; Pulse Ox 100% on R/A; mg2 16:27 Body Mass Index 23.73 (79.38 kg, 182.88 cm) ca1 MDM: 17:40 Patient medically screened. jr8 19:51 Data reviewed: vital signs, nurses notes, lab test result(s). Data interpreted: Pulse jr8 oximetry: on room air is 100 %. Interpretation: normal. Counseling: I had a detailed discussion with the patient and/or guardian regarding: the historical points, exam findings, and any diagnostic results supporting the discharge/admit diagnosis, lab results, the need for outpatient follow up, a family practitioner, to return to the emergency department if symptoms worsen or persist or if there are any questions or concerns that arise at home. ED course: To remain in quarantine until swab comes back. Most likely viral in nature. Abdomen on exam benign and without tenderness. Will put on zofran and bentyl for time being . 02/19 17:41 Order name: Basic Metabolic Panel; Complete Time: 19:23 02/19 17:41 Order name: CBC with Diff; Complete Time: 19:23 02/19 17:41 Order name: Hepatic Function; Complete Time: 19:23 02/19 17:41 Order name: Lipase; Complete Time: 19:23 [facility] 02/19 19:23 Order name: COVID-19 [facility] 02/19 17:41 Order name: IV Saline Lock; Complete Time: 18:27 02/19 17:41 Order name: Labs collected and sent; Complete Time: 18:17 02/19 17:41 Order name: Urine Dipstick-Ancillary (obtain specimen); Complete Time: 19:32 jr8 Administered Medications: 18:25 Drug: Zofran (Ondansetron) 4 mg Route: IVP; Site: left antecubital; tw2 19:04 Follow up: Response: No adverse reaction; Nausea is decreased tw2 19:51 Drug: Bentyl 20 mg Route: PO; mg2 19:51 Follow up: Response: No adverse reaction mg2 Disposition: 02/20 05:57 Co-signature as Attending Physician, Paul Nevarez MD. rn Disposition: 02/20/20 19:54 Discharged to Home. Impression: Acute Gastroenteritis. - Condition is Stable. - Discharge Instructions: Viral Gastroenteritis, Adult, COVID-19. - Prescriptions for Bentyl 20 mg Oral Tablet - take 1 tablet by ORAL route every 6 hours As needed; 20 tablet. Zofran 4 mg Oral Tablet - take 1 tablet by ORAL route every 12 hours As needed; 20 tablet. - Medication Reconciliation Form, Thank You Letter, Antibiotic Education, Prescription Opioid Use, Work release form form. - Follow up: Private Physician; When: 1 week; Reason: Recheck today's complaints, Continuance of care, Re-evaluation by your physician. - Problem is new. - Symptoms have improved. Signatures: Dispatcher [employer] EDPaul Calhoun MD MD rn Roszak, Josh, PA PA jr8 Mayda Bautista RN RN tw2 Thierno Frey RN RN mg2 Acob, Mar RN RN ca1 Corrections: (The following items were deleted from the chart) 02/19 18:16 17:41 Urine Test ordered. jr8 tw2 20:07 19:54 02/20/2020 19:54 Discharged to Home. Impression: Acute Gastroenteritis. Condition mg2 is Stable. Forms are Work release form, Medication Reconciliation Form, Thank You Letter, Antibiotic Education, Prescription Opioid Use. Follow up: Private Physician; When: 1 week; Reason: Recheck today's complaints, Continuance of care, Re-evaluation by your physician. Problem is new. Symptoms have improved. jr8
--- NOTE | 2020-02-20 19:54 | ER ---
Nurse's Notes [facility] Name: Geovani Hawkins Age: 44 yrs Sex: Male : 1975 Arrival Date: 02/20/2020 Time: 16:25 Bed 16 Private MD: Diagnosis: Acute Gastroenteritis Presentation: 02/19 16:27 Chief complaint: Patient states: Lower abdominal pain since Thursday. Reports N/V/D. ca1 Coronavirus screen: Client denies travel out of the [place] in the last 14 days. At this time, the client does not indicate any symptoms associated with coronavirus-19. Ebola Screen: Patient negative for fever greater than or equal to 101.5 degrees Fahrenheit, and additional compatible Ebola Virus Disease symptoms Patient denies exposure to infectious person. Patient denies travel to an Ebola-affected area in the 21 days before illness onset. No symptoms or risks identified at this time. Initial Sepsis Screen: Does the patient meet any 2 criteria? No. Patient's initial sepsis screen is negative. Does the patient have a suspected source of infection? No. Patient's initial sepsis screen is negative. Risk Assessment: Do you want to hurt yourself or someone else? Patient reports no desire to harm self or others. Onset of symptoms was February 20, 2020. 16:27 Method Of Arrival: Ambulatory ca1 16:27 Acuity: CHRISTIAN 3 ca1 Triage Assessment: 16:29 General: Appears in no apparent distress. comfortable, Behavior is calm, cooperative, ca1 appropriate for age. Pain: Complains of pain in right lower quadrant and left lower quadrant. Historical: - Allergies: 16:29 Imitrex; ca1 16:29 Morphine; ca1 - Home Meds: 19:12 gabapentin Oral [Active]; Suboxone sublingual [Active]; Maxalt Oral [Active]; tw2 - PMHx: 16:29 cluster headaches; epilepsy; ca1 - PSHx: 16:29 oral surgery; ca1 19:12 L thigh surgery; tw2 - Immunization history:: Adult Immunizations up to date. - Social history:: Smoking status: Patient reports the use of cigarette tobacco products, smokes one-half pack cigarettes per day. Screenin:00 Abuse screen: Denies threats or abuse. Nutritional screening: No deficits noted. tw2 Tuberculosis screening: No symptoms or risk factors identified. Fall Risk None identified. Assessment: 17:15 General: Appears in no apparent distress. slender, well groomed, Behavior is calm, tw2 cooperative, appropriate for age. Pain: Complains of pain in epigastric area. Neuro: Level of Consciousness is awake, alert, obeys commands, Oriented to person, place, time, situation. Cardiovascular: Heart tones S1 S2 Patient's skin is warm and dry. Respiratory: Airway is patent Respiratory effort is even, unlabored, Respiratory pattern is regular, symmetrical, Breath sounds are clear bilaterally. GI: Abdomen is flat, Bowel sounds present X 4 quads. Abd is soft X 4 quads Reports lower abdominal pain, upper abdominal pain, indigestion, nausea, "i also feel like i am having to be forceful with swallowing". : No signs and/or symptoms were reported regarding the genitourinary system. EENT: No signs and/or symptoms were reported regarding the EENT system. Derm: No signs and/or symptoms reported regarding the dermatologic system. Musculoskeletal: Range of motion: intact in all extremities. 18:28 Reassessment: Patient appears in no apparent distress at this time. No changes from tw2 previously documented assessment. Patient and/or family updated on plan of care and expected duration. Pain level reassessed. Patient is alert, oriented x 3, equal unlabored respirations, skin warm/dry/pink. 20:07 Reassessment: Patient appears in no apparent distress at this time. Patient states mg2 feeling better. Vital Signs: 16:27 BP 107 / 75; Pulse 83; Resp 15 S; Temp 98.7(O); Pulse Ox 100% on R/A; Weight 79.38 kg ca1 (R); Height 6 ft. 0 in. (182.88 cm) (R); Pain 6/10; 18:00 BP 101 / 70; Pulse 71; Resp 17; Pulse Ox 98% on R/A; tw2 18:30 BP 99 / 69; Pulse 84; Resp 17; Pulse Ox 97% on R/A; tw2 19:52 BP 112 / 75; Pulse 72; Resp 18; Pulse Ox 100% on R/A; mg2 16:27 Body Mass Index 23.73 (79.38 kg, 182.88 cm) ca1 ED Course: 16:25 Patient arrived in ED. as 16:29 Triage completed. ca1 16:29 Arm band placed on right wrist. ca1 17:15 Bed in low position. Call light in reach. Pulse ox on. NIBP on. tw2 17:22 Mayda Bautista, RN is Primary Nurse. tw2 17:40 Andrey Hurt PA is PHCP. jr8 17:40 Paul Nevarez MD is Attending Physician. jr8 18:15 Missed attempt(s): 22 gauge in right antecubital area. blood collected. Bleeding tw2 controlled, band aid applied, catheter tip intact. 18:25 Inserted saline lock: 22 gauge in left antecubital area, using aseptic technique. tw2 19:00 Report given to ALANNA Nova. tw2 19:51 No provider procedures requiring assistance completed. covid swab sent. mg2 20:07 IV discontinued, intact, bleeding controlled, No redness/swelling at site. Pressure mg2 dressing applied. Administered Medications: 18:25 Drug: Zofran (Ondansetron) 4 mg Route: IVP; Site: left antecubital; tw2 19:04 Follow up: Response: No adverse reaction; Nausea is decreased tw2 19:51 Drug: Bentyl 20 mg Route: PO; mg2 19:51 Follow up: Response: No adverse reaction mg2 Outcome: 19:54 Discharge ordered by . jr8 20:07 Discharged to home ambulatory. mg2 20:07 Condition: stable 20:07 Discharge instructions given to patient, Instructed on discharge instructions, follow up and referral plans. medication usage, Demonstrated understanding of instructions, follow-up care, medications, Prescriptions given X 2. 20:07 Patient left the ED. mg2 Addendum: 02/23/2020 13:44 Addendum: COVID-19 Result: Negative result given to RN to notify pt. Notified pt of d m5 negative COVID 19 swab results. Pt advised that even with a negative test result they should remain in isolation until symptom free for 3 days without medication. Pt also advised to return to the ED for worsening symptoms. Signatures: Laura Millan, RN RN dm5 Majnula Armijo Josh, PA PA jr8 Mayda Bautista, ALANNA RN tw2 Thierno Frey RN RN mg2 Mar Metz RN RN ca1 Corrections: (The following items were deleted from the chart) 02/19 18:59 18:28 BP 101 / 70; Pulse 71bpm; Resp 17bpm; Pulse Ox 98% RA; tw2 tw2 19:11 17:15 GI: Abdomen is flat, Bowel sounds present X 4 quads. Abd is soft X 4 quads tw2 Reports lower abdominal pain, upper abdominal pain, indigestion, "i also feel like i am having to be forceful with swallowing" tw2
[2020-02-20 20:43] VITALS: TEMP 98.7
[2020-02-20 20:48] VITALS: BP 112/75; O2SAT 100
== END 2020-02-20 20:07 | disposition home or self-care (01) ==
LOC: ER 16:00
DX: Z88.6 Allergy status to analgesic agent (principal); K52.9 Noninfective gastroenteritis and colitis, unspecified; Z11.59 Encounter for screening for other viral diseases
CPT/HCPCS: 36415; 80048; 80076; 83690; 85025; 96374; 99284; J2405; U0002

== ENCOUNTER 2020-05-23 12:51 | Emergency (ER) | payer SELFPAY ==
--- NOTE | 2020-05-23 13:33 | RAD REPORT ---
EXAM DESCRIPTION: CT - Head Brain Wo Cont - 05/23/2020 1:25 pm CLINICAL HISTORY: Confused;Headache;Pain, recent seizure with head trauma COMPARISON: HEAD BRAIN W O CONTRAST dated 07/23/2012 TECHNIQUE: Axial 5 mm thick images of the head were obtained without IV contrast. All CT scans are performed using dose optimization technique as appropriate and may include automated exposure control or mA/KV adjustment according to patient size. FINDINGS: No intracranial hemorrhage, mass, edema or shift of mid-line structures. No acute infarcti on changes seen. No abnormal extra-axial fluid collections. Ventricles are normal. Mastoid air cells and visualized portions of the paranasal sinuses are clear. No acute bony findings. No identifiable changes from comparison. IMPRESSION: Negative non-contrast CT head examination.
--- NOTE | 2020-05-23 15:28 | EDPHYS ---
Physician Documentation [facility] Name: Geovani Hawkins Age: 44 yrs Sex: Male : 1975 Arrival Date: 05/23/2020 Time: 12:54 Bed 27 Private MD: Eben Cardenas T ED Physician Paul Nevarez HPI: 05/23 15:24 This 44 yrs old Male presents to ER via Ambulatory with complaints of Head rn Injury-Adult, Nausea. 15:24 The patient or guardian reports injury. The complaints affect the right occipital area. rn Onset: The symptoms/episode began/occurred 2 day(s) ago. Associated signs and symptoms: Loss of consciousness: This patient did not experience any loss of consciousness. Pertinent positives: dazed, headache, seizure, Pertinent negatives: neck pain, shortness of breath, vomiting, weakness in extremities, generalized weakness. Severity of symptoms: At their worst the symptoms were mild, in the emergency department the symptoms are unchanged. The patient has not experienced similar symptoms in the past. The patient has not recently seen a physician. Reports had seizure 2 days ago, fell and hit head as result of seizure, no fever. Still feels dazed and nauseated, ran out of gabapentin recently and next appt next week. No focal neuro complaint. No vision abnormality. . Historical: - Allergies: 13:10 Imitrex; dm5 13:10 Morphine; dm5 - Home Meds: 13:10 gabapentin Oral [Active]; Maxalt Oral [Active]; Suboxone sublingual [Active]; dm5 - PMHx: 13:10 cluster headaches; epilepsy; dm5 - Family history:: not pertinent. - Hospitalizations: : No recent hospitalization is reported. ROS: 15:24 Constitutional: Negative for fever, chills, and weight loss, Eyes: Negative for injury, rn pain, redness, and discharge, Neck: Negative for injury, pain, and swelling, Cardiovascular: Negative for chest pain, palpitations, and edema, Respiratory: Negative for shortness of breath, cough, wheezing, and pleuritic chest pain, Abdomen/GI: Negative for abdominal pain, vomiting, diarrhea, and constipation, Back: Negative for injury and pain, MS/Extremity: Negative for injury and deformity, Skin: Negative for injury, rash, and discoloration, Neuro: Negative for weakness, numbness, tingling, and seizure. Exam: 15:24 Constitutional: This is a well developed, well nourished patient who is awake, alert, rn and in no acute distress. Head/Face: Normocephalic, atraumatic. Eyes: Pupils equal round, extra-ocular motions intact. Periorbital areas with no swelling, redness, or edema. Neck: No vertebral tenderness MS/ Extremity: Pulses equal, no cyanosis. Neurovascular intact. Full, normal range of motion. Equal circumference. Neuro: Awake and alert, GCS 15, oriented to person, place, time, and situation. Cranial nerves II-XII grossly intact. Motor strength 5/5 in all extremities. Sensory grossly intact. Cerebellar exam normal. Vital Signs: 13:07 BP 109 / 76; Pulse 92; Resp 20; Temp 98.9; Pulse Ox 97% on R/A; Weight 79.38 kg; Height dm5 6 ft. 1 in. (185.42 cm); Pain 5/10; 13:07 Body Mass Index 23.09 (79.38 kg, 185.42 cm) dm5 Axel Coma Score: 13:07 Eye Response: spontaneous(4). Verbal Response: oriented(5). Motor Response: obeys dm5 commands(6). Total: 15. 15:24 Eye Response: spontaneous(4). Verbal Response: oriented(5). Motor Response: obeys rn commands(6). Total: 15. 15:24 Eye Response: spontaneous(4). Verbal Response: oriented(5). Motor Response: obeys rn commands(6). Total: 15. MDM: 15:17 Patient medically screened. rn 15:24 Differential diagnosis: Contusion of Hematoma on Intracranial bleed- Concussion rn cerebral contusion. Data reviewed: vital signs, nurses notes, radiologic studies, CT scan, and as a result, I will discharge patient. Counseling: I had a detailed discussion with the patient and/or guardian regarding: the historical points, exam findings, and any diagnostic results supporting the discharge/admit diagnosis, radiology results, the need for outpatient follow up, to return to the emergency department if symptoms worsen or persist or if there are any questions or concerns that arise at home. Special discussion: Based on the patient's history, exam and DX evaluation, there is no indication for emergent intervention or inpatient TX. It is understood by the patient/guardian that if the SXs persist or worsen they need to return immediately for re-evaluation. I discussed with the patient/guardian in detail that at this point there is no indication for admission to the hospital. It is understood, however, that if the symptoms persist or worsen the patient needs to return immediately for re-evaluation. 05/23 13:11 Order name: CT Head Brain wo Cont; Complete Time: 14:52 dm5 Administered Medications: No medications were administered Disposition: 05/23/20 15:27 Discharged to Home. Impression: Concussion. - Condition is Stable. - Discharge Instructions: Concussion, Adult, Post-Concussion Syndrome. - Prescriptions for gabapentin 300 mg Oral capsule - take 1 capsule by ORAL route 2 times per day As needed; 30 capsule. - Medication Reconciliation Form, Thank You Letter, Antibiotic Education, Prescription Opioid Use form. - Follow up: Private Physician; When: As needed; Reason: Recheck today's complaints, Re-evaluation by your physician. - Problem is new. - Symptoms have improved. Signatures: Dispatcher [employer] EDMS Michelel Atkinson, BOX PACKER-C BOX PACKER-Laura Calvin RN RN dm5 Kayy Quintero RN RN iw Paul Nevarez MD MD deputy commonwealth's attorney: (The following items were deleted from the chart) 15:37 15:27 05/23/2020 15:27 Discharged to Home. Impression: Concussion. Condition is Stable. iw Forms are Medication Reconciliation Form, Thank You Letter, Antibiotic Education, Prescription Opioid Use. Follow up: Private Physician; When: As needed; Reason: Recheck today's complaints, Re-evaluation by your physician. Problem is new. Symptoms have improved. rn
--- NOTE | 2020-05-23 15:28 | ER ---
Nurse's Notes [facility] Name: Geovani Hawkins Age: 44 yrs Sex: Male : 1975 Arrival Date: 05/23/2020 Time: 12:54 Bed 27 Private MD: Eben Cardenas T Diagnosis: Concussion Presentation: 05/23 13:07 Chief complaint: Patient states: Pt states that they had a seizure Sat morning and fell dm5 and hit head on tile floor. Continues to have a headache but it is getting better. Pt states they feel like they are in a daze. Pt states that they haven't been eating and gets nauseated ocassionally. Coronavirus screen: nausea, Client presents with at least one sign or symptom that may indicate coronavirus-19. Standard/surgical mask placed on the client. Ebola Screen: Patient negative for fever greater than or equal to 101.5 degrees Fahrenheit, and additional compatible Ebola Virus Disease symptoms Patient denies exposure to infectious person. Patient denies travel to an Ebola-affected area in the 21 days before illness onset. No symptoms or risks identified at this time. Mechanism of Injury: The problem was sustained at [facility], resulted from a fall, from a standing position. Initial Sepsis Screen: Does the patient meet any 2 criteria? No. Patient's initial sepsis screen is negative. Does the patient have a suspected source of infection? No. Patient's initial sepsis screen is negative. Risk Assessment: Do you want to hurt yourself or someone else? Patient reports no desire to harm self or others. 13:07 Method Of Arrival: Ambulatory dm5 13:07 Acuity: CHRISTIAN 3 dm5 Triage Assessment: 15:00 Neuro: Reports headache. iw Historical: - Allergies: 13:10 Imitrex; dm5 13:10 Morphine; dm5 - Home Meds: 13:10 gabapentin Oral [Active]; Maxalt Oral [Active]; Suboxone sublingual [Active]; dm5 - PMHx: 13:10 cluster headaches; epilepsy; dm5 - Family history:: not pertinent. - Hospitalizations: : No recent hospitalization is reported. Screenin:13 Abuse screen: Denies threats or abuse. Denies injuries from another. Nutritional iw screening: No deficits noted. Tuberculosis screening: No symptoms or risk factors identified. Fall Risk None identified. Assessment: 15:13 General: Appears in no apparent distress. Behavior is calm, cooperative. Pain: iw Complains of pain in head. Neuro: Level of Consciousness is awake, alert, obeys commands, Oriented to person, place, time, situation, Moves all extremities. Full function. Cardiovascular: Patient's skin is warm and dry. Respiratory: Respiratory effort is even, unlabored, Respiratory pattern is regular, symmetrical. Derm: Skin is intact, is healthy with good turgor. Musculoskeletal: Range of motion: intact in all extremities. Vital Signs: 13:07 BP 109 / 76; Pulse 92; Resp 20; Temp 98.9; Pulse Ox 97% on R/A; Weight 79.38 kg; Height dm5 6 ft. 1 in. (185.42 cm); Pain 5/10; 13:07 Body Mass Index 23.09 (79.38 kg, 185.42 cm) dm5 Axel Coma Score: 13:07 Eye Response: spontaneous(4). Verbal Response: oriented(5). Motor Response: obeys dm5 commands(6). Total: 15. 15:24 Eye Response: spontaneous(4). Verbal Response: oriented(5). Motor Response: obeys rn commands(6). Total: 15. 15:24 Eye Response: spontaneous(4). Verbal Response: oriented(5). Motor Response: obeys rn commands(6). Total: 15. ED Course: 12:54 Patient arrived in ED. ag5 12:54 Eben Cardenas MD is Private Physician. ag5 13:09 Triage completed. dm5 13:25 CT Head Brain wo Cont In Process Unspecified. EDMS 13:26 CT completed. Patient tolerated procedure well. Patient moved to CT via wheelchair. sw Patient moved back from CT. 15:09 Kayy Quintero, RN is Primary Nurse. iw 15:13 No provider procedures requiring assistance completed. iw 15:14 Arm band placed on. iw 15:17 Paul Nevarez MD is Attending Physician. rn 15:36 Patient did not have IV access during this emergency room visit. iw 05/24 15:15 Patient has correct armband on for positive identification. iw Administered Medications: No medications were administered Outcome: 05/23 15:27 Discharge ordered by MD. rn 15:36 Discharged to home ambulatory, with family. iw 15:36 Condition: good 15:36 Discharge instructions given to patient, Instructed on discharge instructions, follow up and referral plans. Demonstrated understanding of instructions, follow-up care. 15:37 Patient left the ED. iw Signatures: Dispatcher [employer] Laura Byrne RN RN dm5 Kayy Quintero RN ALANNA iw Paul Nevarez MD MD rn Warren, Shannon sw G[place], Os[facility]
[2020-05-23 19:59] VITALS: BP 109/76; TEMP 98.9; O2SAT 97
== END 2020-05-23 15:37 | disposition home or self-care (01) ==
LOC: ER 12:51
DX: S06.0X0A Concussion without loss of consciousness, initial encounter (principal); W19.XXXA Unspecified fall, initial encounter; Y93.9 Activity, unspecified; Y92.9 Unspecified place or not applicable; G40.909 Epilepsy, unspecified, not intractable, without status epilepticus; Z88.5 Allergy status to narcotic agent; Z88.8 Allergy status to other drugs, medicaments and biological substances
CPT/HCPCS: 70450; 99284

== ENCOUNTER 2020-09-01 12:45 | Emergency (ER) | payer SELFPAY ==
[2020-09-01] MEDS ORDERED: KETOROLAC 30 MG/ML INJ ONE (13:13)
[2020-09-01] MEDS ORDERED: NA CHLORIDE 0.9% 1,000 ML ONE (13:13)
[2020-09-01 13:18] LABS: Absolute Lymphocytes (CBC) 2.8 K/uL (0.7-4.9); Basophils % 1.2 % (0-1.3); Hematocrit 41.8 % (39.6-49.0); MPV 8.2 fL (7.6-11.3); RBC Red Blood Cell Count 4.56 M/uL (4.33-5.43)
--- NOTE | 2020-09-01 13:25 | RAD REPORT ---
EXAM DESCRIPTION: CT - Stone Protocol - 09/01/2020 1:11 pm CLINICAL HISTORY: Flank pain. FLANK PAIN COMPARISON: No comparisons TECHNIQUE: Axial images were obtained without oral or IV contrast. Lack of contrast limits solid org an and vascular assessment. The [id number] spans the entirety of the system partially obscuring uppermost abdomen and lung bases. Coronal reformatted images were obtained and reviewed. All CT scans are performed using dose optimization technique as appropriate and may include automated exposure control or mA/KV adjustment according to patient size. FINDINGS: The lower lung ochoa are clear. Imaged portions of the liver and spleen show no suspicious findings on non-contrast imaging. The panc reas and adrenal glands are normal. No pathologic lymphadenopathy in the abdomen or pelvis. No urinary tract stones or obstructive uropathy. No bowel obstruction, free air, free fluid or abscess. Normal appendix noted. No significant bony abnormality. Right inguinal hernia is present containing soft tissue. IMPRESSION: No urinary tract stones or obstructive uropathy. Right inguinal hernia containing soft tissue. Advise correlation with physical exam.
[2020-09-01 13:28] LABS: ALT/SGPT 22 U/L (12-78); AST/SGOT 15 U/L (15-37); Albumin 3.8 g/dL (3.4-5.0); Alkaline Phosphatase 117 U/L (45-117); BUN Blood Urea Nitrogen 7 mg/dL (7-18); Bicarbonate 25 mmol/L (21-32); Bilirubin Direct 0.1 mg/dL (0-0.2); Bilirubin Total 0.3 mg/dL (0.2-1.0); Glucose Level 76 mg/dL (74-106); Lipase 84 U/L (73-393); Potassium 3.9 mmol/L (3.5-5.1); Sodium Level 140 mmol/L (136-145)
[2020-09-01 15:16] LABS: Urine Bacteria <20 /HPF (NONE SEEN); Urine RBC <5 /HPF (NONE SEEN)
[2020-09-01] MEDS ORDERED: ONDANSETRON 4 MG/2 ML VIAL ONE (15:21)
[2020-09-01] MEDS ORDERED: FENTANYL CITR 100 MCG/2 ML ONE (15:21)
[2020-09-01 15:25] LABS: Urine Blood NEGATIVE (NEG); Urine Glucose NEGATIVE (NEG); Urine Protein NEGATIVE (NEG); Urine Specific Gravity 1.015 (1.005-1.030)
--- NOTE | 2020-09-01 15:40 | EDPHYS ---
Physician Documentation [facility] Name: Geovani Hawkins Age: 44 yrs Sex: Male : 1975 Arrival Date: 09/01/2020 Time: 12:47 Bed 4 Private MD: DARLENE Physician Art Cornejo HPI: 09/01 14:24 This 44 yrs old Male presents to ER via Ambulatory with complaints of Kidney pm1 Pain. 14:24 The patient presents with pain that is acute, with no known mechanism of injury. The pm1 symptoms are located in the low back. The pain does not radiate. The problem was sustained from unknown cause. Onset: The symptoms/episode began/occurred 3 day(s) ago. Associated signs and symptoms: Pertinent positives: nausea, Pertinent negatives: abdominal pain, chest pain, dysuria, fever, headache, numbness, tingling, vomiting. Severity of symptoms: in the emergency department the symptoms are actually worse. The patient has not experienced similar symptoms in the past. The patient has not recently seen a physician. Historical: - Allergies: 12:51 Imitrex; hb 12:51 Morphine; hb - Home Meds: 12:51 gabapentin 300 mg/6 mL (6 mL) oral soln [Active]; Maxalt Oral [Active]; Suboxone hb sublingual [Active]; - PMHx: 12:51 epilepsy; cluster headaches; hb - Immunization history:: Adult Immunizations up to date. - Social history:: Smoking status: Patient denies any tobacco usage or history of. ROS: 14:24 Constitutional: Negative for fever, chills, and weight loss, Cardiovascular: Negative pm1 for chest pain, palpitations, and edema, Respiratory: Negative for shortness of breath, cough, wheezing, and pleuritic chest pain. 14:24 : Negative for injury, bleeding, discharge, and swelling, MS/Extremity: Negative for injury and deformity, Skin: Negative for injury, rash, and discoloration, Neuro: Negative for headache, weakness, numbness, tingling, and seizure. 14:24 Abdomen/GI: Positive for nausea, Negative for abdominal pain, vomiting, diarrhea. 14:24 Back: Positive for pain with movement, of the right low back, and laying on his right side. Exam: 14:24 Constitutional: This is a well developed, well nourished patient who is awake, alert, pm1 and in no acute distress. Head/Face: Normocephalic, atraumatic. 14:24 Skin: Warm, dry with normal turgor. Normal color with no rashes, no lesions, and no evidence of cellulitis. MS/ Extremity: Pulses equal, no cyanosis. Neurovascular intact. Full, normal range of motion. 14:24 Cardiovascular: Rate: normal, Rhythm: regular, Pulses: no pulse deficits are appreciated, Edema: is not appreciated. 14:24 Respiratory: Exam negative for acute changes, respiratory distress, shortness of breath. 14:24 Abdomen/GI: Inspection: abdomen appears normal, Palpation: abdomen is soft and non-tender, in all quadrants. 14:24 Back: pain, that is mild, of the right low back, vertebral tenderness, is not appreciated. 14:24 Neuro: Exam negative for acute changes, Orientation: is normal, Mentation: is normal, Motor: is normal, moves all fours. Vital Signs: 12:54 BP 128 / 87; Pulse 97; Resp 16; Temp 97.9(TE); Pulse Ox 99% on R/A; Weight 81.65 kg; ss Height 6 ft. 0 in. (182.88 cm); Pain 7/10; 14:36 BP 136 / 93; Pulse 89; Resp 16; Pulse Ox 99% on R/A; hb 15:45 BP 132 / 88; Pulse 86; Resp 15; Pulse Ox 100% on R/A; hb 12:54 Body Mass Index 24.41 (81.65 kg, 182.88 cm) ss MDM: 12:50 Patient medically screened. pm1 13:49 ED course: Patient did not feel or know of the existence of any hernia. Patient pm1 examined and he notes some tenderness on examination. Clinically small right inguinal hernia on examination easily reduced and no pain or tenderness present after reduction. 15:38 Data reviewed: vital signs. Data interpreted: Pulse oximetry: on room air is 99 %. pm1 Interpretation: normal. Counseling: I had a detailed discussion with the patient and/or guardian regarding: the historical points, exam findings, and any diagnostic results supporting the discharge/admit diagnosis, lab results, radiology results, the need for outpatient follow up, a family practitioner, a general surgeon, to return to the emergency department if symptoms worsen or persist or if there are any questions or concerns that arise at home. 09/01 12:54 Order name: Basic Metabolic Panel; Complete Time: 13:41 pm1 09/01 12:54 Order name: CBC with Diff; Complete Time: 13:41 pm1 09/01 12:54 Order name: Hepatic Function; Complete Time: 13:41 pm1 09/01 12:54 Order name: Lipase; Complete Time: 13:41 pm1 09/01 13:49 Order name: Urine Microscopic Only; Complete Time: 15:26 pm1 09/01 14:37 Order name: Urine Dipstick--Ancillary (enter results); Complete Time: 15:26 eb 09/01 12:54 Order name: IV Saline Lock; Complete Time: 13:08 pm1 09/01 12:54 Order name: Labs collected and sent; Complete Time: 13:08 pm1 09/01 12:54 Order name: Urine Dipstick-Ancillary (obtain specimen); Complete Time: 13:22 pm1 09/01 12:54 Order name: CT Stone Protocol; Complete Time: 13:41 pm1 Administered Medications: 13:07 Drug: TORadol 30 mg Route: IVP; Site: right antecubital; hb 13:45 Follow up: Response: No adverse reaction hb 13:22 Drug: NS 0.9% 1000 ml Route: IV; Rate: 1000 ml; Site: right antecubital; hb 14:37 Follow up: Response: No adverse reaction; IV Status: Completed infusion; IV Intake: hb 1000ml 15:06 Drug: fentaNYL (PF) 25 mcg Route: IVP; Site: right antecubital; hb 15:53 Follow up: Response: No adverse reaction hb 15:06 Drug: Zofran (Ondansetron) 4 mg Route: IVP; Site: right antecubital; hb 15:53 Follow up: Response: No adverse reaction hb Disposition: 09/01/20 15:39 Discharged to Home. Impression: Low back pain, Inguinal hernia - right. - Condition is Stable. - Discharge Instructions: Back Pain, Adult, Inguinal Hernia, Adult. - Prescriptions for Tylenol- Codeine #3 300-30 mg Oral Tablet - take 2 tablets by ORAL route every 4-6 hours As needed; 20 tablet. Cyclobenzaprine 10 mg Oral Tablet - take 1 tablet by ORAL route every 8 hours As needed; 30 tablet. Diclofenac Sodium 75 mg Oral Tablet, Delayed Release (E.C.) - take 1 tablet by ORAL route 2 times per day As needed; 30 tablet. - Medication Reconciliation Form, Thank You Letter, Antibiotic Education, Prescription Opioid Use form. - Follow up: Emergency Department; When: As needed; Reason: Worsening of condition. Follow up: Private Physician; When: 2 - 3 days; Reason: Recheck today's complaints, Continuance of care, Re-evaluation by your physician. - Problem is new. - Symptoms have improved. Addendum: 09/03/2020 06:10 Co-signature as Attending Physician, Art Cornejo MD I agree with the assessment and c sanderson plan of care. Signatures: Dispatcher [employer] EDArt Diane MD MD cha Marinas, Patrick, SAP BI ARCHITECT SAP BI ARCHITECT pm1 Farida Duenas, RN RN hb Corrections: (The following items were deleted from the chart) 09/01 15:38 14:24 Back: Positive for of the right low back, pain, pm1 pm1 15:55 15:39 09/01/2020 15:39 Discharged to Home. Impression: Low back painInguinal hernia - hb right. Condition is Stable. Discharge Instructions: Back Pain, Adult, Inguinal Hernia, Adult. Forms are Medication Reconciliation Form, Thank You Letter, Antibiotic Education, Prescription Opioid Use. Follow up: Emergency Department; When: As needed; Reason: Worsening of condition. Follow up: Private Physician; When: 2 - 3 days; Reason: Recheck today's complaints, Continuance of care, Re-evaluation by your physician. Problem is new. Symptoms have improved. pm1
--- NOTE | 2020-09-01 15:40 | ER ---
Nurse's Notes [facility] Name: Geovani Hawkins Age: 44 yrs Sex: Male : 1975 Arrival Date: 09/01/2020 Time: 12:47 Bed 4 Private MD: Diagnosis: Inguinal hernia-right;Low back pain Presentation: 09/01 12:51 Coronavirus screen: At this time, the client does not indicate any symptoms associated hb with coronavirus-19. Ebola Screen: No symptoms or risks identified at this time. Initial Sepsis Screen: Does the patient meet any 2 criteria? No. Patient's initial sepsis screen is negative. Does the patient have a suspected source of infection? No. Patient's initial sepsis screen is negative. Risk Assessment: Do you want to hurt yourself or someone else? Patient reports no desire to harm self or others. 12:51 Method Of Arrival: Ambulatory hb 12:54 Chief complaint: Patient states: R flank/ low back pain that began 2-3 days ago, but is ss worse today. Also c/o intermittent nausea. Onset of symptoms was August 31, 2020. 12:54 Acuity: CHRISTIAN 3 ss Historical: - Allergies: 12:51 Imitrex; hb 12:51 Morphine; hb - Home Meds: 12:51 gabapentin 300 mg/6 mL (6 mL) oral soln [Active]; Maxalt Oral [Active]; Suboxone hb sublingual [Active]; - PMHx: 12:51 epilepsy; cluster headaches; hb - Immunization history:: Adult Immunizations up to date. - Social history:: Smoking status: Patient denies any tobacco usage or history of. Screenin:51 Abuse screen: Denies threats or abuse. Denies injuries from another. Nutritional hb screening: No deficits noted. Tuberculosis screening: No symptoms or risk factors identified. Fall Risk None identified. Assessment: 13:08 General: Appears in no apparent distress. Behavior is calm, cooperative. Pain: Pain hb currently is 5 out of 10 on a pain scale. Neuro: Level of Consciousness is awake, alert, obeys commands, Oriented to person, place, time, situation. Cardiovascular: Capillary refill < 3 seconds Patient's skin is warm and dry. Respiratory: Respiratory effort is even, unlabored, Respiratory pattern is regular, symmetrical. GI: No signs and/or symptoms were reported involving the gastrointestinal system. : Reports right flank pain. EENT: No signs and/or symptoms were reported regarding the EENT system. Derm: Skin is pink, warm \T\ dry. Musculoskeletal: No signs and/or symptoms reported regarding the musculoskeletal system. 14:00 Reassessment: Patient appears in no apparent distress at this time. Patient and/or hb family updated on plan of care and expected duration. Pain level reassessed. Patient is alert, oriented x 3, equal unlabored respirations, skin warm/dry/pink. 15:00 Reassessment: Patient appears in no apparent distress at this time. Patient and/or hb family updated on plan of care and expected duration. Pain level reassessed. Patient is alert, oriented x 3, equal unlabored respirations, skin warm/dry/pink. 15:45 Reassessment: Patient appears in no apparent distress at this time. Patient and/or hb family updated on plan of care and expected duration. Pain level reassessed. Patient is alert, oriented x 3, equal unlabored respirations, skin warm/dry/pink. Patient states symptoms have improved. Vital Signs: 12:54 BP 128 / 87; Pulse 97; Resp 16; Temp 97.9(TE); Pulse Ox 99% on R/A; Weight 81.65 kg; ss Height 6 ft. 0 in. (182.88 cm); Pain 7/10; 14:36 BP 136 / 93; Pulse 89; Resp 16; Pulse Ox 99% on R/A; hb 15:45 BP 132 / 88; Pulse 86; Resp 15; Pulse Ox 100% on R/A; hb 12:54 Body Mass Index 24.41 (81.65 kg, 182.88 cm) ED Course: 12:47 Patient arrived in ED. ds1 12:50 Bart Whitman NP is PHCP. pm1 12:50 Art Cornejo MD is Attending Physician. pm1 12:50 Farida Duenas, ALANNA is Primary Nurse. hb 12:50 Arm band placed on. hb 12:51 Patient has correct armband on for positive identification. Bed in low position. Call light in reach. Side rails up X 1. 12:55 Triage completed. ss 13:08 Inserted saline lock: 20 gauge in right antecubital area, using aseptic technique. hb Blood collected. 13:11 CT Stone Protocol In Process Unspecified. EDMS 15:55 No provider procedures requiring assistance completed. IV discontinued, intact, hb bleeding controlled, No redness/swelling at site. Administered Medications: 13:07 Drug: TORadol 30 mg Route: IVP; Site: right antecubital; hb 13:45 Follow up: Response: No adverse reaction hb 13:22 Drug: NS 0.9% 1000 ml Route: IV; Rate: 1000 ml; Site: right antecubital; hb 14:37 Follow up: Response: No adverse reaction; IV Status: Completed infusion; IV Intake: hb 1000ml 15:06 Drug: fentaNYL (PF) 25 mcg Route: IVP; Site: right antecubital; hb 15:53 Follow up: Response: No adverse reaction hb 15:06 Drug: Zofran (Ondansetron) 4 mg Route: IVP; Site: right antecubital; hb 15:53 Follow up: Response: No adverse reaction hb Intake: 14:37 IV: 1000ml; Total: 1000ml. hb Outcome: 15:39 Discharge ordered by . pm1 15:55 Discharged to home ambulatory. hb 15:55 Condition: stable 15:55 Discharge instructions given to patient, Instructed on discharge instructions, follow up and referral plans. medication usage, Demonstrated understanding of instructions, follow-up care, medications, Prescriptions given X 3. 15:55 Patient left the ED. hb Signatures: Dispatcher [employer] [facility] Stephani Sutherland ds1 Concepción Olea RN RN ss Marinas, Patrick, THERESA [employer]SP[employer]ER COLUMNIST pm1 Farida Duenas RN RN hb
== END 2020-09-01 15:55 | disposition home or self-care (01) ==
LOC: ER 12:45
DX: K40.90 Unilateral inguinal hernia, without obstruction or gangrene, not specified as recurrent (principal); Z88.5 Allergy status to narcotic agent; Z88.8 Allergy status to other drugs, medicaments and biological substances
CPT/HCPCS: 36415; 74176; 76377; 80048; 80076; 81003; 81015; 83690; 85025; 96361; 96374; 96375; 99284; J2405; J3010; J7030

== ENCOUNTER 2022-09-12 16:18 | Emergency (ER) | payer SELFPAY ==
[2022-09-12] MEDS ORDERED: MORPHINE 4 MG/ML SYR ONE (16:51)
[2022-09-12] MEDS ORDERED: ONDANSETRON 4 MG/2 ML VIAL ONE (16:52)
--- NOTE | 2022-09-12 17:24 | RAD REPORT ---
EXAM DESCRIPTION: Shoulder Right 2 View - 09/12/2022 4:42 pm CLINICAL HISTORY: Pain COMPARISON: None. TECHNIQUE: Internal and external rotation views of the right shoulder were obtained. FINDINGS: There is no fracture. Widening of the glenohumeral articulation. AC joint is normal in siva earance. No acute or suspicious findings. IMPRESSION: Subluxation of shoulder joint. No acute fractures.
[2022-09-12] MEDS ORDERED: HYDROMORPHONE HCL 1 MG/ML INJ ONE (17:54)
[2022-09-12 20:32] VITALS: TEMP 98.6
[2022-09-12 20:35] VITALS: BP 133/85; O2SAT 97
--- NOTE | 2022-09-26 16:28 | EDPHYS ---
Physician Documentation [facility] Name: Geovani Hawkins Age: 46 yrs Sex: Male : 1975 Arrival Date: 09/12/2022 Time: 16:19 Bed 6 Private MD: ED Physician Paul Nevarez HPI: 09/12 16:31 This 46 yrs old Male presents to ER via Wheelchair with complaints of shoulder injury. rn 16:31 The patient or guardian complains of decreased range of motion, an injury, pain. right rn shoulder. Onset: The symptoms/episode began/occurred just prior to arrival. Modifying factors: the symptoms are alleviated by remaining still, The symptoms are aggravated by movement, rotation of arm. Associated signs and symptoms: Pertinent negatives: abdominal pain, chest pain, Weakness in right arm. Severity of symptoms: At their worst the symptoms were moderate, in the emergency department the symptoms are unchanged. The patient has not experienced similar symptoms in the past. The patient has not recently seen a physician. Pt was working on roof, slipped, fell with right arm above and behind him, + right shoulder pain and painful ROM. No other injury. NPO since morning. . Historical: - Allergies: 16:27 Imitrex; ph - Home Meds: 16:27 gabapentin 300 mg/6 mL (6 mL) Oral soln [Active]; ph - PMHx: 16:27 cluster headaches; epilepsy; ph - Immunization history:: Adult Immunizations unknown. - Social history:: Smoking status: Patient reports the use of cigarette tobacco products, smokes one-half pack cigarettes per day. - Family history:: not pertinent. - Hospitalizations: : No recent hospitalization is reported. ROS: 16:31 Constitutional: Negative for fever, chills, and weight loss, Neck: Negative for injury, rn pain, and swelling, Cardiovascular: Negative for chest pain, palpitations, and edema, Respiratory: Negative for shortness of breath, cough, wheezing, and pleuritic chest pain, Abdomen/GI: Negative for abdominal pain, nausea, vomiting, diarrhea, and constipation, Back: Negative for injury and pain, MS/Extremity: + right shoulder injury and pain Skin: Negative for injury, rash, and discoloration, Neuro: Negative for headache, weakness, numbness, tingling, and seizure. Exam: 16:31 Constitutional: This is a well developed, well nourished patient who is awake, alert, rn + right shoulder injury and pain Neck: No midline cervical tenderness Cardiovascular: Tachycardic, regular. No pulse deficits. Respiratory: No increased work of breathing, no retractions or nasal flaring. MS/ Extremity: Pulses equal, no cyanosis. Neurovascular intact. + right proximal shoulder tenderness Neuro: Awake and alert, GCS 15, oriented to person, place, time, and situation. Cranial nerves II-XII grossly intact. Motor strength 5/5 in all extremities. Sensory grossly intact. Vital Signs: 16:23 BP 140 / 81; Pulse 102; Resp 18; Temp 98.6; Pulse Ox 100% on R/A; Weight 81.65 kg; ph Height 6 ft. 1 in. ; 17:55 BP 130 / 95; Pulse 84; Pulse Ox 94% on R/A; Pain 10/10; ap3 19:23 BP 133 / 85; Pulse 80; Resp 20 S; Pulse Ox 97% on R/A; ha1 16:23 Body Mass Index 23.75 (81.65 kg, 185.42 cm) ph 17:55 Pain Scale: Adult ap3 MDM: 16:22 Patient medically screened. rn 17:58 Differential diagnosis: Anterior dislocation with fracture, Anterior dislocation rn without fracture, Posterior dislocation with fracture, Posterior dislocation without fracture, humeral head fracture, glenoid fracture, DJD, tendonitis, tendon rupture, ligamentous tear. Data reviewed: vital signs, nurses notes, radiologic studies, plain films, and as a result, I will discharge patient. Independent interpretation of the following test(s) in the Emergency Department X-Ray: My interpretation is Xray right shoulder images neg for acute fracture/dislocation. + evidence of subluxation per my interpretation. . Counseling: I had a detailed discussion with the patient and/or guardian regarding: the historical points, exam findings, and any diagnostic results supporting the discharge/admit diagnosis, radiology results, the need for outpatient follow up, to return to the emergency department if symptoms worsen or persist or if there are any questions or concerns that arise at home. Response to treatment: the patient's symptoms have mildly improved after treatment, and as a result, I will discharge patient. Special discussion: I discussed with the patient/guardian in detail that at this point there is no indication for admission to the hospital. It is understood, however, that if the symptoms persist or worsen the patient needs to return immediately for re-evaluation. Further emergent ED testing is not indicated at this point in time. I discussed with the patient/guardian in detail the need to arrange with the PCP or specialist further outpatient testing, MRI, Based on the history and exam findings, there is no indication for further emergent testing or inpatient evaluation. I discussed with the patient/guardian the need to see the orthopedic surgeon for further evaluation of the symptoms. 17:58 ED course: Told patient most likely has tear, will dc home with ortho f/u and return rn precautions.. 09/12 16:26 Order name: XRAY Shoulder RIGHT 2 view; Complete Time: 17:27 rn 09/12 16:27 Order name: IV Start; Complete Time: 16:51 rn 09/12 16:27 Order name: NPO; Complete Time: 16:42 rn 09/12 17:40 Order name: Shoulder Immobilizer; Complete Time: 18:04 rn Administered Medications: 16:51 Drug: morphine IVP or IV 4 mg Route: IVP; Infused Over: 4 mins; Site: left antecubital; aa5 16:58 Follow up: Response: No adverse reaction aa5 16:51 Drug: Ondansetron IVP 4 mg Route: IVP; Site: left antecubital; aa5 16:58 Follow up: Response: No adverse reaction aa5 17:55 Drug: HYDROmorphone IVP 1 mg Route: IVP; Site: left hand; ap3 Disposition Summary: 09/12/22 18:01 Discharge Ordered Location: Home rn Problem: new rn Symptoms: have improved rn Condition: Stable rn Diagnosis - Other sprain of right shoulder joint rn Followup: rn - With: Private Physician - When: As needed - Reason: Recheck today's complaints, Re-evaluation by your physician Discharge Instructions: - Discharge Summary Sheet rn - How to Use a Shoulder Immobilizer rn - Shoulder Sprain rn - Shoulder Instability rn Forms: - Medication Reconciliation Form rn - Thank You Letter rn - Antibiotic patternmaker metal - Prescription Opioid Use rn Prescriptions: - Cyclobenzaprine 10 mg Oral Tablet - take 1 tablet by ORAL route every 8 hours As needed; 15 tablet; Refills: 0, rn Product Selection Permitted - Tramadol 50 mg Oral Tablet - take 1 tablet by ORAL route every 8 hours as needed; 15 tablet; Refills: 0, rn Product Selection Permitted Signatures: Dispatcher [employer] Paul Joe MD MD rn Aurea Fortune RN RN aa5 Mckayla Boyd RN RN Crystal Moeller RN RN ap3 Corrections: (The following items were deleted from the chart) 16:52 16:27 Allergies: Morphine; aa5
--- NOTE | 2022-09-26 16:28 | ER ---
Nurse's Notes [facility] Name: Geovani Hawkins Age: 46 yrs Sex: Male : 1975 Arrival Date: 09/12/2022 Time: 16:19 Bed 6 Private MD: Diagnosis: Other sprain of right shoulder joint Presentation: 09/12 16:23 Chief complaint: Patient's son or daughter states: Was on roof, slipped on leaves, did ph not fall off of roof but landed on R arm, obvious deformity to R shoulder, sling in place, no other injuries. Coronavirus screen: Vaccine status: Patient reports being unvaccinated. Ebola Screen: No symptoms or risks identified at this time. Initial Sepsis Screen: Does the patient meet any 2 criteria? No. Patient's initial sepsis screen is negative. Does the patient have a suspected source of infection? No. Patient's initial sepsis screen is negative. Risk Assessment: Do you want to hurt yourself or someone else? Patient reports no desire to harm self or others. Onset of symptoms was September 12, 2022. 16:23 Method Of Arrival: Wheelchair ph 16:23 Acuity: CHRISTIAN 3 ph Triage Assessment: 19:24 General: Appears. ha1 Historical: - Allergies: 16:27 Imitrex; ph - Home Meds: 16:27 gabapentin 300 mg/6 mL (6 mL) Oral soln [Active]; ph - PMHx: 16:27 cluster headaches; epilepsy; ph - Immunization history:: Adult Immunizations unknown. - Social history:: Smoking status: Patient reports the use of cigarette tobacco products, smokes one-half pack cigarettes per day. - Family history:: not pertinent. - Hospitalizations: : No recent hospitalization is reported. Screenin:24 Abuse screen: Denies threats or abuse. Denies injuries from another. Nutritional ha1 screening: No deficits noted. Tuberculosis screening: No symptoms or risk factors identified. Assessment: 16:58 Reassessment: Patient is alert, oriented x 3, equal unlabored respirations, skin aa5 warm/dry/pink. 19:23 Reassessment: Patient and/or family updated on plan of care and expected duration. Pain ha1 level reassessed. Patient is alert, oriented x 3, equal unlabored respirations, skin warm/dry/pink. Vital Signs: 16:23 BP 140 / 81; Pulse 102; Resp 18; Temp 98.6; Pulse Ox 100% on R/A; Weight 81.65 kg; ph Height 6 ft. 1 in. ; 17:55 BP 130 / 95; Pulse 84; Pulse Ox 94% on R/A; Pain 10/10; ap3 19:23 BP 133 / 85; Pulse 80; Resp 20 S; Pulse Ox 97% on R/A; ha1 16:23 Body Mass Index 23.75 (81.65 kg, 185.42 cm) ph 17:55 Pain Scale: Adult ap3 ED Course: 16:19 Patient arrived in ED. mr 16:22 Paul Nevarez MD is Attending Physician. rn 16:27 Triage completed. ph 16:28 Arm band placed on Patient placed in an exam room. ph 16:44 XRAY Shoulder RIGHT 2 view In Process Unspecified. EDMS 16:48 Inserted saline lock: 20 gauge in left hand, using aseptic technique. aa5 19:[address] RN is Primary Nurse. ha1 19:25 No provider procedures requiring assistance completed. IV discontinued, intact, ha1 bleeding controlled, No redness/swelling at site. Pressure dressing applied. Administered Medications: 16:51 Drug: morphine IVP or IV 4 mg Route: IVP; Infused Over: 4 mins; Site: left antecubital; aa5 16:58 Follow up: Response: No adverse reaction aa5 16:51 Drug: Ondansetron IVP 4 mg Route: IVP; Site: left antecubital; aa5 16:58 Follow up: Response: No adverse reaction aa5 17:55 Drug: HYDROmorphone IVP 1 mg Route: IVP; Site: left hand; ap3 Medication: 19:24 VIS not applicable for this client. ha1 Outcome: 18:01 Discharge ordered by . rn 19:25 Discharged to home via wheelchair, with family. ha1 19:25 Condition: stable 19:25 Discharge instructions given to patient, family, Instructed on discharge instructions, follow up and referral plans. medication usage, Demonstrated understanding of instructions, follow-up care, medications, Prescriptions given X 2. 19:25 Patient left the ED. ha1 Signatures: Dispatcher [employer] [facility] Analisa Lopez mr Paul Nevarez MD MD rn Calderon, Audri, RN RN [id number] Mckayla Boyd RN RN ph Crystal Montaño, RN RN ap3 Neelam Lane, RN RN ha1 Corrections: (The following items were deleted from the chart) 16:52 16:27 Allergies: Morphine; ph aa5
== END 2022-09-12 19:25 | disposition home or self-care (01) ==
LOC: ER 16:18
DX: S43.491A Other sprain of right shoulder joint, initial encounter (principal)
CPT/HCPCS: 99284; J1170; J2405